=== PATIENT | female | born 1985 | race Asian ===

== ENCOUNTER → 2018-03-05 | Outpatient (CLI) | payer OTHER | END | disposition home or self-care (01) | LOC: C.LABSPEC 14:13 | PROVIDERS: ATTEND Obstetrics & Gynecology | DX: N89.8 Other specified noninflammatory disorders of vagina (principal) ==

== ENCOUNTER 2020-06-15 10:21 | Inpatient (IN) ==
--- NOTE | 2020-06-15 10:54 | Anesthesiology Consultation ---
Date of Service June 15, 2020 Assessment & Plan Chart Review Chart Review: Acceptable Risk for Surgery Consults Requested none History Surgery Operation Date: 06/15/20 11:30 Proposed Procedures p Exam Under Anesthesia - Yamilet Munroe MD, FACOG Allergies Allergy/AdvReac Type Severity Reaction Status Date / Time No Known Drug Allergies Allergy NKA Verified 06/14/20 13:06 Medications Home Medications Medication Instructions Recorded Confirmed Last Taken prenat.vits,remy,kka-olsh-noysp 1 tab PO DAILY 10/28/19 06/14/20 06/14/20 acetone (urine) test #50 03/28/20 06/14/20 Unknown blood sugar diagnostic #150 03/28/20 06/14/20 Unknown blood-glucose meter #1 03/28/20 06/14/20 Unknown lancets #102 03/28/20 06/14/20 Unknown pen needle, diabetic 32 gauge x #100 05/26/20 06/14/20 Unknown 32" ferrous sulfate [iron] 325 mg PO DAILY 06/08/20 06/14/20 06/14/20 insulin NPH isoph U-100 human 50 unit SQ HS 06/08/20 06/14/20 06/14/20 [Novolin N Flexpen] insulin aspart U-100 [Novolog 25 unit SQ TID MDD up to 50 units 06/15/20 06/14/20 20:30 Flexpen U-100 Insulin] in a day Past Medical History Medical History [place]ervical [place] suture [place] [facility] [place]ervical [place] Diet controlled gestational diabetes mellitus (GDM), antepartum Encounter for anatomic survey History of PCOS Insulin resistance Varicella vaccine Past Family History Family History Father Diabetes Grandmother Diabetes Grandfather Diabetes Aunt Diabetes Past Surgical History Surgical History S/P wisdom tooth extraction Social History Smoking Status: Never smoker Hx Alcohol Use: No Hx Substance Use: No substance use type: does not use
[2020-06-15 11:03] LABS: Basophils # (auto) 0.01 K/uL (0-0.2); Basophils % (auto) 0.1 %; Eosinophils # (auto) 0.06 K/uL (0-0.5); Eosinophils % (auto) 0.6 %; Hematocrit (blood only) 34.7 % (37-47); Hemoglobin 11.7 g/dL (12.0-16.0); Immature Granulocytes # (auto) 0.06 K/uL (0.00-0.02); Immature Granulocytes % (auto) 0.6 %; Lymphocytes # (auto) 2.22 K/uL (1.2-3.4); Lymphocytes % (auto) 23.1 %; Mean Corpuscular Hemoglobin 29.4 pg (25-34); Mean Corpuscular Hgb Conc 33.7 g/dL (32-36); Mean Corpuscular Volume 87.2 fL (80-100); Mean Platelet Volume 12.2 fL (7.4-10.4); Monocytes # (auto) 0.63 K/uL (0.11-0.59); Monocytes % (auto) 6.6 %; Neutrophils # (auto) 6.62 K/uL (1.4-6.5); Platelet Count 173 K/uL (130-400); RDW Coefficient of Variation 15.1 % (11.5-14.5); RDW Standard Deviation 47.9 fL (36.4-46.3); Red Blood Count 3.98 M/uL (4.2-5.4)
--- NOTE | 2020-06-15 11:03 | History & Physical Report ---
Date of Service June 15, 2020 Assessment & Plan (1) Cervical cerclage suture present, antepartum: Admission and Anticipated Discharge Date Admission Date: June 15, 2020 Plan to go to operating room and remove cerclage under spinal. risks of procedure reviewed and consent reviewed and signed. fetus category one. History of Present Illness Chief Complaint: presents for cerclage removal Primary Care Provider: NO PCP Patient is a at 37 6/7 weeks who presents to labor and delivery for cerclage removal. Patient had shortened , funneled cervix at 20 week anatomy scan. She subsequently [place] [facility] [place] Patient presented last week at 36 weeks for removal with this physician. I removed a cerclage with some difficulty because of patient discomfort that day. Exam after removal, I did not appreciate any remaining suture and was 1cm. Patient presented to the office yesterday for routine pn visit. I perfomed an exam and, unfortunately, felt a stitch across the external os. I attempted to remove in the office and was unsuccessful secondary to poor visualization and patient discomfort. Therefore, she is here for another attempt at removal under spinal and in the OR so can successfully remove. also complicated by insulin requiring diabetes. Allergies Allergy/AdvReac Type Severity Reaction Status Date / Time No Known Drug Allergies Allergy NKA Verified 06/14/20 13:06 Home Medications Home Medications Medication Instructions Recorded Confirmed Type prenat.vits,remy,[id number] 1 tab PO DAILY 10/28/19 06/15/20 History acetone (urine) test #50 ea 03/28/20 06/14/20 Rx blood sugar diagnostic #150 03/28/20 06/14/20 Rx blood-glucose meter #1 03/28/20 06/14/20 Rx lancets #102 03/28/20 06/14/20 Rx pen needle, diabetic 32 gauge x #100 ea 05/26/20 06/14/20 Rx 5/32" ferrous sulfate [iron] 325 mg PO DAILY 06/08/20 06/15/20 History insulin NPH isoph U-100 human 50 unit SQ HS 06/08/20 06/15/20 History [Novolin N Flexpen] insulin aspart U-100 [Novolog 25 unit SQ TID MDD up to 50 units 06/15/20 06/15/20 History Flexpen U-100 Insulin] in a day Patient History Medical History Cervical cerclage suture present [place] 20 weeks [place] [facility] [place] Cervical shortening Encounter for anatomic survey History of PCOS Insulin controlled gestational diabetes mellitus (GDM) during See medications for Insulin taken during the . Insulin resistance Varicella vaccine Surgical History S/P wisdom tooth extraction Family History Father Diabetes Grandmother Diabetes Grandfather Diabetes Aunt Diabetes Social History Smoking Status: Never smoker Hx Alcohol Use: No Hx Substance Use: No Preferred Language: Indonesian Communication Ability: Effective Beliefs That Will Affect Care: Cultural Cultural Beliefs: prefers no male providers; Anesthesia ok marital status: marital status details: Nacho Maulik Joy (33) [phone] Current Living Situation: Spouse Current Living Situation Comment: lives with spouse no pets current occupational status: unemployed Feels Safe at Home: Yes Review of Systems All systems reviewed & are unremarkable except as noted in HPI & below Physical Exam Constitutional: WD/WN, vitals as above Gastrointestinal (Abdomen): soft, gravid, nt Psychiatric: A+Ox3, euthymic affect Genitourinary: cx--1+/75/-2, stitch still palpable toco--giancarlo efm--140s with mod variability, accels to 160s, no decels Code Status & VTE Plan VTE Prophylaxis Plan VTE Prophylaxis will be ordered: No Coding Level of Care Code 31639 OBS Care - Level 1 Diagnoses Cervical cerclage suture present, antepartum O34.30
[2020-06-15] MEDS: LACTATED RINGER'S 1,000 ML IV PRN ×3 (11:10→21:06)
[2020-06-15] MEDS ORDERED: LACTATED RINGER'S 1,000 ML IV ONE (11:11)
[2020-06-15] MEDS ORDERED: fentaNYL citrate 100 MCG/2 ML VIAL IV PRN (11:15)
[2020-06-15] MEDS ORDERED: ONDANSETRON INJ 2 MG/ML 2 ML VIAL IV PRN (11:15)
[2020-06-15] MEDS ORDERED: PROMETHAZINE HCL 12.5 MG in SODIUM CHLORIDE 0.9% 50 ML IV PRN (11:15)
[2020-06-15] MEDS ORDERED: ePHEDrine sulfate 50 MG/ML AMP IV PRN ×2 (11:15→23:28)
[2020-06-15] MEDS ORDERED: ATROPINE SULFATE 0.1 MG/ML 10ML SYR IV PRN (11:15)
[2020-06-15] MEDS ORDERED: CITRIC ACID/SODIUM CITRATE 15 ML UDC ONE (11:29)
[2020-06-15] MEDS ORDERED: CITRIC ACID/SODIUM CITRATE 15 ML UDC PO ONE (11:29)
--- NOTE | 2020-06-15 12:30 | Operative Report ---
PG Post Operative Report Pre & Post Diagnosis Operation Date: 06/15/20 11:30 Pre-Op Diagnosis: Cerclage in place postop diagnosis: cerclage removed srom I identified the patient and participated in the time-out.: Yes Procedure Removal of cerclage Operation Date: 06/15/20 11:30 <No data on this case meets the specified criteria> Surgeon Yamilet Munroe MD, FACOG Coke Worker none Estimated Blood Loss 25 Findings Consistent with Post-Op Diagnosis srom noted prior to any operative maneuvers performed cx--/-2 after procedure, vertex, no membranes palpable, grossly ruptured STitch across cervix cut and remaining suture cut as well. Fluids LR Specimens none Drains none Anesthesia Type Spinal Complications none Disposition Accompanied Patient To Recovery: Yes Disposition: L&D Indications persistent cerclage at term Description of Procedure Patient was taken to the operating room and identified verbally and by bracelet. Patient was seated on the operating table and spinal anesthetic was placed by Dr. Chu. She was then placed in the dorsal lithotomy position. An under the butt drape was placed. I noted before even placing anything in the vagina there was clear fluid coming out. A weighted speculum was placed and the vagina filled with clear fluid, consistent with srom happening prior to the start of my part of the procedure. A right angle retractor was placed in the upper vagina. The cervix anterior and posterior lip were grasped with a ring forcep. There was no bleeding noted prior to the procedure but the cervix appeared friable. I was then able to use a long scissors to cut the suture that was across the cervical os by palpation. I then removed all instruments from the vagina and a gush of fluid followed. I examined the cervix. Could not appreciate any membranes. cervix was 3 cm but I still felt there was a tightness to the cervix and that maybe another stitch was present, or not all of the stitch was loose. I was able to palpate the internal cervix and slid the scissors up my finger and cut. All instruments were removed from the vagina and on reexamination of the cervix, I did not feel that tightness any longer. I never actually physically visualized any suture. I examined the external , vaginal part of the cervix and I did not see any knot or suture. At the 2 o'clock area there was a small amount of granulation tissue where the knot of the part of the cerclage I removed previously had been located. There was no stitch visible. The procedure was then terminated. Continued to note clear fluid coming from the vagina. The patient tolerated the procedure well and was taken to labor and delivery in stable condition. She will now be admitted for labor. I attest to the content of the Intraoperative Record and any orders documented therein. Any exceptions are noted below.
--- NOTE | 2020-06-15 12:33 | Labor Progress Brief Note ---
Date of Service June 15, 2020 Subjective Patient is back in labor and delivery and comfortable. Assessment & Plan (1) PROM (premature rupture of membranes): Admission and Anticipated Discharge Date Admission Date: June 15, 2020 Patient ruptured prio to me actually doing anything with the cerclage. She will now be admitted for labor. Will expectantly manage. PItocin as indicated. Pain management per patient. fetus category one. Will monitor bs hourly. Goal is to maintain between 80-120. Will add insulin or D5 if needed. Last growth ultrasound was AC 73% and EFW 72%. Physical Exam Constitutional: WD/WN, vitals as above Psychiatric: A+Ox3, euthymic affect Genitourinary: efw--130s wtih mod variability, accels to 160s, no decels. ctx q6min. Results & Data ([facility]) Vital Signs (Past 12 Hours) Vital Signs Temp Pulse Resp BP Pulse Ox 06/15/20 12:26 93 H 100 06/15/20 11:00 20 06/15/20 10:59 37.1 C 88 20 121/79 Coding Level of Care Code None Diagnoses PROM (premature rupture of membranes) O42.90
[2020-06-15] MEDS ORDERED: OXYTOCIN 30 UNITS/500 ML BAG IV PRN ×2 (12:35→18:20)
[2020-06-15] MEDS ORDERED: LACTATED RINGER'S 1,000 ML IV PRN (12:35)
--- NOTE | 2020-06-15 15:25 | Labor Progress Brief Note ---
Date of Service June 15, 2020 Subjective noting contractions, notes they are every five min Assessment & Plan (1) PROM (premature rupture of membranes): Admission and Anticipated Discharge Date Admission Date: June 15, 2020 Continue expectant management. fetus category one. Plan to check at around 6 hours after srom. Physical Exam Constitutional: WD/WN, vitals as above Psychiatric: A+Ox3, euthymic affect Genitourinary: toco--q3-5 efm--130s with mod variability, accels to 160s, no decels Results & Data ([facility]) Vital Signs (Past 12 Hours) Vital Signs Temp Pulse Resp BP Pulse Ox 06/15/20 15:05 88 122/72 06/15/20 14:50 86 115/73 06/15/20 14:41 87 118/72 06/15/20 14:30 37.0 C 96 H 18 119/84 06/15/20 14:20 98 H 125/79 06/15/20 14:10 92 H 127/73 06/15/20 14:01 73 20 132/73 06/15/20 13:50 86 20 124/79 06/15/20 13:41 93 H 121/79 06/15/20 13:30 88 20 123/79 06/15/20 13:26 84 100 06/15/20 13:21 89 20 135/83 100 06/15/20 13:16 86 06/15/20 13:12 86 20 127/82 06/15/20 13:11 87 100 06/15/20 13:06 85 100 06/15/20 13:01 82 20 120/79 100 06/15/20 12:56 81 100 06/15/20 12:51 80 06/15/20 12:50 77 20 109/61 06/15/20 12:46 83 100 06/15/20 12:43 85 20 124/78 06/15/20 12:41 79 20 120/76 100 06/15/20 12:36 91 H 18 100 06/15/20 12:31 91 H 100 06/15/20 12:30 37.1 C 88 20 121/84 06/15/20 12:26 93 H 100 06/15/20 11:00 20 06/15/20 10:59 37.1 C 88 20 121/79 Coding Level of Care Code None Diagnoses PROM (premature rupture of membranes) O42.90
--- NOTE | 2020-06-15 15:29 | Anesthesiology Progress Note ---
Date of Service June 15, 2020 Anesthesia Post Procedure Vital Signs Vital Signs: Temp Pulse Resp BP Pulse Ox 06/15/20 15:05 88 122/72 06/15/20 14:50 86 115/73 06/15/20 14:41 87 118/72 06/15/20 14:30 37.0 C 96 H 18 119/84 06/15/20 14:20 98 H 125/79 06/15/20 14:10 92 H 127/73 06/15/20 14:01 73 20 132/73 06/15/20 13:50 86 20 124/79 06/15/20 13:41 93 H 121/79 06/15/20 13:30 88 20 123/79 06/15/20 13:26 84 100 06/15/20 13:21 89 20 135/83 100 06/15/20 13:16 86 100 06/15/20 13:12 86 20 127/82 06/15/20 13:11 87 100 06/15/20 13:06 85 100 06/15/20 13:01 82 20 120/79 100 06/15/20 12:56 81 100 06/15/20 12:51 80 100 06/15/20 12:50 77 20 109/61 06/15/20 12:46 83 100 06/15/20 12:43 85 20 124/78 06/15/20 12:41 79 20 120/76 100 06/15/20 12:36 91 H 18 100 06/15/20 12:31 91 H 100 06/15/20 12:30 37.1 C 88 20 121/84 06/15/20 12:26 93 H 100 06/15/20 11:00 20 06/15/20 10:59 37.1 C 88 20 121/79 Pain Intensity Bilateral Abdomen: Pain Intensity: 3 Transfer of Care Handoff Completed per policy Notes Mental Status: alert / awake / arousable and participated in evaluation Patient Amnestic to Procedure: Yes Nausea / Vomiting: adequately controlled Pain: adequately controlled Airway Patency, RR, SpO2: stable & adequate BP & HR: stable & adequate Hydration State: stable & adequate Neuraxial Anesthesia: was administered and sensory block is resolving Anesthetic Complications: no major complications apparent
--- NOTE | 2020-06-15 18:23 | Labor Progress Brief Note ---
Date of Service June 15, 2020 Subjective Feels like contractions have spaced. Assessment & Plan (1) PROM (premature rupture of membranes): start pitocin as no change since 6 hrs from rom, agreeable (2) Insulin controlled gestational diabetes mellitus (GDM) during : sugars all less than 120, recently in 70s. can space to q2 hrs. Admission and Anticipated Discharge Date Admission Date: June 15, 2020 Physical Exam Constitutional: WD/WN, vitals as above Psychiatric: A+Ox3, euthymic affect Genitourinary: cx--difficult exam secondary to patient discomfort, probably no change toco--q5-6min efm--130s with mod variabitility , accels to 150s, no decels Results & Data ([facility]) Vital Signs (Past 12 Hours) Vital Signs Temp Pulse Resp BP Pulse Ox 06/15/20 18:13 36.7 C 94 H 20 128/78 06/15/20 16:37 37.0 C 82 16 121/65 06/15/20 15:05 88 122/72 06/15/20 14:50 86 115/73 06/15/20 14:41 87 118/72 06/15/20 14:30 37.0 C 96 H 18 119/84 06/15/20 14:20 98 H 125/79 06/15/20 14:10 92 H 127/73 06/15/20 14:01 73 20 132/73 06/15/20 13:50 86 20 124/79 06/15/20 13:41 93 H 121/79 06/15/20 13:30 88 20 123/79 06/15/20 13:26 84 100 06/15/20 13:21 89 20 135/83 100 06/15/20 13:16 86 06/15/20 13:12 86 20 127/82 06/15/20 13:11 87 100 06/15/20 13:06 85 100 06/15/20 13:01 82 20 120/79 100 06/15/20 12:56 81 100 06/15/20 12:51 80 100 06/15/20 12:50 77 20 109/61 06/15/20 12:46 83 100 06/15/20 12:43 85 20 124/78 06/15/20 12:41 79 20 120/76 100 06/15/20 12:36 91 H 18 100 06/15/20 12:31 91 H 100 06/15/20 12:30 37.1 C 88 20 121/84 06/15/20 12:26 93 H 100 06/15/20 11:00 20 06/15/20 10:59 37.1 C 88 20 121/79 Coding Level of Care Code None Diagnoses PROM (premature rupture of membranes) O42.90 Insulin controlled gestational diabetes mellitus (GDM) during O24.414
[2020-06-15] MEDS ORDERED: Nursing to Pharmacy Communication SCH (18:30)
[2020-06-15] MEDS ORDERED: DEXTROSE 5% 1,000 ML IV SCH (20:45)
[2020-06-15] MEDS ORDERED: ePHEDrine sulfate 50 MG/ML AMP ONE (22:40)
[2020-06-15] MEDS ORDERED: BUPIVACAINE 0.25% 30 ML VIAL ONE (22:40)
[2020-06-15] MEDS ORDERED: fentaNYL 2MCG/ML ROPIV 1.25MG/ML 100 ML BAG EPI ONE (22:41)
[2020-06-15] MEDS ORDERED: fentaNYL citrate 100 MCG/2 ML VIAL ONE (22:41)
--- NOTE | 2020-06-15 23:25 | Anesthesiology Consultation ---
Date of Service June 15, 2020 Assessment & Plan Chart Review Chart Review: Acceptable Risk for Labor Epidural Consults Requested none History Surgery Operation Date: 06/15/20 11:30 Proposed Procedures p Exam Under Anesthesia - Yamilet Munroe MD, FACOG Height/Weight Height: 5 ft 8 in Weight: 107.501 kg Allergies Allergy/AdvReac Type Severity Reaction Status Date / Time No Known Drug Allergies Allergy NKA Verified 06/14/20 13:06 Medications Home Medications Medication Instructions Recorded Confirmed Last Taken prenat.vits,remy,kpy-easj-olzwz 1 tab PO DAILY 10/28/19 06/15/20 06/14/20 acetone (urine) test #50 03/28/20 06/14/20 Unknown blood sugar diagnostic #150 03/28/20 06/14/20 Unknown blood-glucose meter #1 03/28/20 06/14/20 Unknown lancets #102 03/28/20 06/14/20 Unknown pen needle, diabetic 32 gauge x #100 05/26/20 06/14/20 Unknown " ferrous sulfate [iron] 325 mg PO DAILY 06/08/20 06/15/20 06/14/20 insulin NPH isoph U-100 human 50 unit SQ HS 06/08/20 06/15/20 06/14/20 [Novolin N Flexpen] insulin aspart U-100 [Novolog 25 unit SQ TID MDD up to 50 units 06/15/20 06/15/20 06/14/20 20:30 Flexpen U-100 Insulin] in a day Active Medications Generic Name Dose Route Start Last Admin Trade Name Jamshidq PRN Reason Stop Dose Admin Lactated Ringer's 1,000 mls @ 125 mls/hr 06/15/20 10:38 06/15/20 21:06 Lr IV 07/15/20 10:37 125 mls/hr .Q8H PRN Administration L&D Protocol Protocol Oxytocin 30 units in 500 mls @ 14 mls/hr 06/15/20 18:20 06/15/20 22:10 Pitocin IV 06/17/20 18:19 0.84 units/hr .Q24H PRN 14 mls/hr Labor Induction/Augmentation Titration Protocol 0.84 UNITS/HR NPO Date Last Intake of Fluids: 06/15/20 Time Last Intake of Fluids: 09:45 Date Last Intake of Solids: 06/14/20 Time Last Intake of Solids: 20:30 Past Medical History Medical History Cervical cerclage suture present placed at 20 weeks at [facility] [place] Cervical shortening Encounter for anatomic survey History of PCOS Insulin controlled gestational diabetes mellitus (GDM) during See medications for Insulin taken during the . Insulin resistance Varicella vaccine Past Family History Family History Father Diabetes Grandmother Diabetes Grandfather Diabetes Aunt Diabetes Past Surgical History Surgical History S/P wisdom tooth extraction Social History Smoking Status: Never smoker Hx Alcohol Use: No Hx Substance Use: No substance use type: does not use Physical Exam Vital Signs Last Vital Signs Temp 36.8 C 06/15/20 21:32 Pulse 100 H 06/15/20 23:23 Resp 18 06/15/20 22:00 BP 123/60 06/15/20 23:23 Pulse Ox 99 06/15/20 23:19 Testing Laboratory Results 06/15/20 10:51 06/15/20 06/15/20 06/15/20 21:29 20:29 18:28 POC Glucose 76 69 L* 78 06/15/20 06/15/20 06/15/20 17:38 16:34 15:41 POC Glucose 71 70 78 06/15/20 06/15/20 06/15/20 14:27 13:28 12:27 POC Glucose 89 91 106 H
[2020-06-15] MEDS ORDERED: DiphenhydrAMINE HCL 50 MG/ML VIAL IV PRN (23:28)
[2020-06-15] MEDS ORDERED: NALOXONE HCL 1 MG in SODIUM CHLORIDE 0.9% 1000ML 1,000 ML IV PRN (23:28)
[2020-06-15] MEDS ORDERED: NALOXONE HCL 0.4 MG/1 ML VIAL/CARP IV PRN (23:28)
--- NOTE | 2020-06-16 00:11 | Labor Progress Brief Note ---
Date of Service June 16, 2020 Subjective comfortable after epidural Assessment & Plan (1) PROM (premature rupture of membranes): Admission and Anticipated Discharge Date Admission Date: June 15, 2020 continue pit, max at 30. fetus category one Physical Exam Constitutional: WD/WN, vitals as above Psychiatric: A+Ox3, euthymic affect Genitourinary: cx--4/75/-2 toco--q3-5min, pit at 16 efm--135 with mod variability, accels to 150s, no decels Results & Data ([facility]) Vital Signs (Past 12 Hours) Vital Signs Temp Pulse Resp BP Pulse Ox 06/16/20 00:05 86 110/61 06/16/20 00:04 91 H 98 06/15/20 23:59 98 H 99 06/15/20 23:54 97 H 99 06/15/20 23:49 91 H 116/61 98 06/15/20 23:44 92 H 98 06/15/20 23:39 108 H 98 06/15/20 23:35 18 06/15/20 23:34 104 H 99 06/15/20 23:33 96 H 130/60 06/15/20 23:32 36.6 C 06/15/20 23:30 18 06/15/20 23:29 104 H 98 06/15/20 23:27 100 H 127/59 L 06/15/20 23:25 98 H 18 119/63 06/15/20 23:24 97 H 98 06/15/20 23:23 100 H 123/60 06/15/20 23:21 106 H 119/57 L 06/15/20 23:20 18 06/15/20 23:19 99 H 121/62 99 06/15/20 23:17 96 H 123/68 06/15/20 23:15 101 H 18 136/66 06/15/20 23:14 96 H 99 06/15/20 23:13 90 132/61 06/15/20 23:11 89 141/73 H 06/15/20 23:09 99 H 127/81 100 06/15/20 23:07 96 H 142/85 H 06/15/20 23:04 100 H 100 06/15/20 23:01 93 H 135/78 06/15/20 23:00 18 09/02/20 22:59 90 159/96 H 09/02/20 22:30 18 06/15/20 22:00 18 06/15/20 21:32 36.8 C 86 134/81 06/15/20 21:30 18 06/15/20 21:00 18 06/15/20 20:32 90 131/63 06/15/20 20:30 18 06/15/20 19:21 37.0 C 84 108/59 L 06/15/20 18:13 36.7 C 94 H 20 128/78 06/15/20 16:37 37.0 C 82 16 121/65 06/15/20 15:05 88 122/72 06/15/20 14:50 86 115/73 06/15/20 14:41 87 118/72 06/15/20 14:30 37.0 C 96 H 18 119/84 06/15/20 14:20 98 H 125/79 06/15/20 14:10 92 H 127/73 06/15/20 14:01 73 20 132/73 06/15/20 13:50 86 20 124/79 06/15/20 13:41 93 H 121/79 06/15/20 13:30 88 20 123/79 06/15/20 13:26 84 100 06/15/20 13:21 89 20 135/83 100 06/15/20 13:16 86 100 06/15/20 13:12 86 20 127/82 06/15/20 13:11 87 100 06/15/20 13:06 85 100 06/15/20 13:01 82 20 120/79 100 06/15/20 12:56 81 100 06/15/20 12:51 80 100 06/15/20 12:50 77 20 109/61 06/15/20 12:46 83 100 06/15/20 12:43 85 20 124/78 06/15/20 12:41 79 20 120/76 100 06/15/20 12:36 91 H 18 100 06/15/20 12:31 91 H 100 06/15/20 12:30 37.1 C 88 20 121/84 06/15/20 12:26 93 H 100 Coding Level of Care Code None Diagnoses PROM (premature rupture of membranes) O42.90
[2020-06-16] MEDS: LACTATED RINGER'S 1,000 ML IV PRN ×2 (01:39→12:29)
--- NOTE | 2020-06-16 03:51 | Labor Progress Brief Note ---
Date of Service June 16, 2020 Subjective comfortable Assessment & Plan (1) PROM (premature rupture of membranes): Admission and Anticipated Discharge Date Admission Date: June 15, 2020 continue pit with goal of >200mvus. fetus category one. Physical Exam Constitutional: WD/WN, vitals as above Psychiatric: A+Ox3, euthymic affect Genitourinary: cx--4/80/-2 iupc placed toco--q2-4min with some coupling/tripling, pit at 24 efm--130s with mod variability, accels to 160s, no decels Results & Data ([facility]) Vital Signs (Past 12 Hours) Vital Signs Temp Pulse Resp BP Pulse Ox 06/16/20 03:45 95 H 98 06/16/20 03:40 88 97 06/16/20 03:35 99 H 98 06/16/20 03:34 79 96/55 L 06/16/20 03:30 81 18 97 06/16/20 03:25 82 97 06/16/20 03:22 37.2 C 06/16/20 03:20 85 99/58 L 98 06/16/20 03:15 91 H 97 06/16/20 03:10 80 98 06/16/20 03:05 86 100/55 L 99 06/16/20 03:00 82 18 98 06/16/20 02:55 88 99 06/16/20 02:50 76 98 06/16/20 02:49 78 106/58 L 06/16/20 02:45 78 98 06/16/20 02:40 89 97 06/16/20 02:35 83 99 06/16/20 02:34 75 110/60 06/16/20 02:30 85 18 98 06/16/20 02:25 86 97 06/16/20 02:20 88 100/60 99 06/16/20 02:15 79 97 06/16/20 02:10 88 97 06/16/20 02:05 88 96 06/16/20 02:04 80 102/56 L 06/16/20 02:00 80 18 97 06/16/20 01:55 87 97 06/16/20 01:50 84 98 06/16/20 01:48 89 100/61 06/16/20 01:45 86 98 06/16/20 01:40 82 97 06/16/20 01:35 81 99 06/16/20 01:34 37.1 C 81 97/56 L 06/16/20 01:30 81 18 97 06/16/20 01:25 89 98 06/16/20 01:20 87 98 06/16/20 01:19 90 98/56 L 06/16/20 01:15 92 H 97 06/16/20 01:10 90 98 06/16/20 01:05 90 97 06/16/20 01:03 82 101/55 L 06/16/20 01:00 94 H 18 97 06/16/20 00:55 83 97 06/16/20 00:50 81 97 06/16/20 00:49 77 98/55 L 06/16/20 00:45 86 98 06/16/20 00:40 89 97 06/16/20 00:35 86 97 06/16/20 00:34 84 105/59 L 06/16/20 00:30 86 18 97 06/16/20 00:25 84 97 06/16/20 00:20 84 97 06/16/20 00:19 78 99/58 L 06/16/20 00:15 88 98 06/16/20 00:10 91 H 98 06/16/20 00:05 86 110/61 06/16/20 00:04 91 H 98 06/16/20 00:00 18 06/15/20 23:59 98 H 99 06/15/20 23:54 97 H 99 06/15/20 23:49 91 H 116/61 98 06/15/20 23:44 92 H 98 06/15/20 23:39 108 H 98 06/15/20 23:35 18 06/15/20 23:34 104 H 99 06/15/20 23:33 96 H 130/60 06/15/20 23:32 36.6 C 06/15/20 23:30 18 06/15/20 23:29 104 H 98 06/15/20 23:27 100 H 127/59 L 06/15/20 23:25 98 H 18 119/63 06/15/20 23:24 97 H 98 06/15/20 23:23 100 H 123/60 06/15/20 23:21 106 H 119/57 L 06/15/20 23:20 18 06/15/20 23:19 99 H 121/62 99 06/15/20 23:17 96 H 123/68 06/15/20 23:15 101 H 18 136/66 06/15/20 23:14 96 H 99 06/15/20 23:13 90 132/61 06/15/20 23:11 89 141/73 H 06/15/20 23:09 99 H 127/81 100 06/15/20 23:07 96 H 142/85 H 06/15/20 23:04 100 H 100 06/15/20 23:01 93 H 135/78 06/15/20 23:00 18 06/15/20 22:59 90 159/96 H 06/15/20 22:30 18 06/15/20 22:00 18 06/15/20 21:32 36.8 C 86 134/81 06/15/20 21:30 18 06/15/20 21:00 18 06/15/20 20:32 90 131/63 06/15/20 20:30 18 06/15/20 19:21 37.0 C 84 108/59 L 06/15/20 18:13 36.7 C 94 H 20 128/78 06/15/20 16:37 37.0 C 82 16 121/65 Coding Level of Care Code None Diagnoses PROM (premature rupture of membranes) O42.90
[2020-06-16] MEDS: fentaNYL 2MCG/ML ROPIV 1.25MG/ML 100 ML BAG EPI PRN ×3 (04:57→12:27)
[2020-06-16] MEDS ORDERED: Nursing to Pharmacy Communication SCH (05:15)
[2020-06-16] MEDS ORDERED: CITRIC ACID/SODIUM CITRATE 15 ML UDC PO SCH (06:00)
--- NOTE | 2020-06-16 06:46 | Labor Progress Brief Note ---
Date of Service June 16, 2020 Subjective comfortable with epidural Assessment & Plan (1) PROM (premature rupture of membranes): Admission and Anticipated Discharge Date Admission Date: June 15, 2020 ctx have been adequate since about 4am, 6 hours with adequate contractions would be 10 am. I started laying the ground work for a possible c/s delivery. I have basically used all of the tools in my bag to get her to contract and she is not changing. Patient asked why we just did not do this yesterday and explained how we have no idea that this baby would not fit through the pelvis noman given 37 6/7 weeks. Explained what I have control over and what I do not. Explained no way we can ever determine a baby will or will not fit through a pelvis until we try. Explained that the power being created by these contractions should be making cervical change. Discussed would discuss in detail with Dr. Mari the labor course. fetus category one. Physical Exam Constitutional: WD/WN, vitals as above Psychiatric: A+Ox3, euthymic affect Genitourinary: cx--unchanged toco--q2-3min, pit at 30, mvus>200 since shortly after iupc placed toco--130s with mod variability, accels to 150s, no decels Results & Data ([facility]) Vital Signs (Past 12 Hours) Vital Signs Temp Pulse Resp BP Pulse Ox 06/16/20 06:36 100 H 140/85 06/16/20 06:35 96 H 99 06/16/20 06:30 90 99 06/16/20 06:25 81 97 06/16/20 06:20 92 H 96 06/16/20 06:19 89 103/56 L 06/16/20 06:15 92 H 96 06/16/20 06:10 89 96 06/16/20 06:05 93 H 98 06/16/20 06:04 88 109/56 L 06/16/20 06:00 94 H 18 97 06/16/20 05:55 92 H 97 06/16/20 05:54 94 H 94 06/16/20 05:50 91 H 108/57 L 95 06/16/20 05:45 86 96 06/16/20 05:40 89 97 06/16/20 05:35 90 96 06/16/20 05:34 86 107/59 L 06/16/20 05:30 95 H 18 97 06/16/20 05:28 37.2 C 06/16/20 05:25 92 H 97 06/16/20 05:24 90 109/56 L 06/16/20 05:20 91 H 98 06/16/20 05:19 83 90 06/16/20 05:15 86 96 06/16/20 05:10 85 97 06/16/20 05:05 85 97 06/16/20 05:04 83 104/57 L 06/16/20 05:00 91 H 18 99 06/16/20 04:55 87 98 06/16/20 04:50 86 107/56 L 98 06/16/20 04:49 87 90 06/16/20 04:45 90 96 06/16/20 04:40 92 H 97 06/16/20 04:35 82 110/64 97 06/16/20 04:30 81 98 06/16/20 04:25 85 97 06/16/20 04:21 85 132/92 06/16/20 04:20 93 H 99 06/16/20 04:15 94 H 98 06/16/20 04:10 87 97 06/16/20 04:06 86 131/83 06/16/20 04:05 97 H 98 06/16/20 04:00 91 H 18 98 06/16/20 03:58 91 H 117/71 06/16/20 03:55 89 98 06/16/20 03:50 90 98 06/16/20 03:45 95 H 98 06/16/20 03:40 88 97 06/16/20 03:35 99 H 98 06/16/20 03:34 79 96/55 L 06/16/20 03:30 81 18 97 06/16/20 03:25 82 97 06/16/20 03:22 37.2 C 06/16/20 03:20 85 99/58 L 98 06/16/20 03:15 91 H 97 06/16/20 03:10 80 98 06/16/20 03:05 86 100/55 L 99 06/16/20 03:00 82 18 98 06/16/20 02:55 88 99 06/16/20 02:50 76 98 06/16/20 02:49 78 106/58 L 06/16/20 02:45 78 98 06/16/20 02:40 89 97 06/16/20 02:35 83 99 06/16/20 02:34 75 110/60 06/16/20 02:30 85 18 98 06/16/20 02:25 86 97 06/16/20 02:20 88 100/60 99 06/16/20 02:15 79 97 06/16/20 02:10 88 97 06/16/20 02:05 88 96 06/16/20 02:04 80 102/56 L 06/16/20 02:00 80 18 97 06/16/20 01:55 87 97 06/16/20 01:50 84 98 06/16/20 01:48 89 100/61 06/16/20 01:45 86 98 06/16/20 01:40 82 97 06/16/20 01:35 81 99 06/16/20 01:34 37.1 C 81 97/56 L 06/16/20 01:30 81 18 97 06/16/20 01:25 89 98 06/16/20 01:20 87 98 06/16/20 01:19 90 98/56 L 06/16/20 01:15 92 H 97 06/16/20 01:10 90 98 06/16/20 01:05 90 97 06/16/20 01:03 82 101/55 L 06/16/20 01:00 94 H 18 97 06/16/20 00:55 83 97 06/16/20 00:50 81 97 06/16/20 00:49 77 98/55 L 06/16/20 00:45 86 98 06/16/20 00:40 89 97 06/16/20 00:35 86 97 06/16/20 00:34 84 105/59 L 06/16/20 00:30 86 18 97 06/16/20 00:25 84 97 06/16/20 00:20 84 97 06/16/20 00:19 78 99/58 L 06/16/20 00:15 88 98 06/16/20 00:10 91 H 98 06/16/20 00:05 86 110/61 06/16/20 00:04 91 H 98 06/16/20 00:00 18 06/15/20 23:59 98 H 99 06/15/20 23:54 97 H 99 06/15/20 23:49 91 H 116/61 98 06/15/20 23:44 92 H 98 06/15/20 23:39 108 H 98 06/15/20 23:35 18 06/15/20 23:34 104 H 99 06/15/20 23:33 96 H 130/60 06/15/20 23:32 36.6 C 06/15/20 23:30 18 06/15/20 23:29 104 H 98 06/15/20 23:27 100 H 127/59 L 06/15/20 23:25 98 H 18 119/63 06/15/20 23:24 97 H 98 06/15/20 23:23 100 H 123/60 06/15/20 23:21 106 H 119/57 L 06/15/20 23:20 18 06/15/20 23:19 99 H 121/62 99 06/15/20 23:17 96 H 123/68 06/15/20 23:15 101 H 18 136/66 06/15/20 23:14 96 H 99 06/15/20 23:13 90 132/61 06/15/20 23:11 89 141/73 H 06/15/20 23:09 99 H 127/81 100 06/15/20 23:07 96 H 142/85 H 06/15/20 23:04 100 H 100 06/15/20 23:01 93 H 135/78 06/15/20 23:00 18 06/15/20 22:59 90 159/96 H 06/15/20 22:30 18 06/15/20 22:00 18 06/15/20 21:32 36.8 C 86 134/81 06/15/20 21:30 18 06/15/20 21:00 18 06/15/20 20:32 90 131/63 06/15/20 20:30 18 06/15/20 19:21 37.0 C 84 108/59 L Coding Level of Care Code None Diagnoses PROM (premature rupture of membranes) O42.90
--- NOTE | 2020-06-16 11:30 | Obstetrical Progress Note ---
Date of Service June 16, 2020 Assessment & Plan Admission and Anticipated Discharge Date Admission Date: June 15, 2020 Subjective contractions noticeably better FHT's category 1 feeling more pressure cx exam- 5cm/90/-2 will continue to labor now and recheck in 1 hour plan discussed with & patient - would like to continue to labor for now- recheck in 1 hour Results & Data ([facility]) Vital Signs (Past 12 Hours) Vital Signs Temp Pulse Resp BP Pulse Ox 06/16/20 11:25 99 H 99 06/16/20 11:20 97 H 98 06/16/20 11:19 96 H 134/75 06/16/20 11:15 93 H 98 06/16/20 11:10 98 H 98 06/16/20 11:05 95 H 96 06/16/20 11:04 93 H 131/71 06/16/20 11:00 94 H 97 06/16/20 10:55 100 H 98 06/16/20 10:50 94 H 97 06/16/20 10:49 91 H 132/67 06/16/20 10:45 98 H 97 06/16/20 10:40 97 H 98 06/16/20 10:35 95 H 98 06/16/20 10:34 90 130/66 06/16/20 10:30 94 H 98 06/16/20 10:25 92 H 99 06/16/20 10:20 95 H 99 06/16/20 10:19 94 H 131/67 06/16/20 10:15 93 H 100 06/16/20 10:10 93 H 100 06/16/20 10:09 107 H 92 06/16/20 10:05 103 H 98 06/16/20 10:04 96 H 126/63 06/16/20 10:00 95 H 98 06/16/20 09:55 99.1 F 91 H 18 97 06/16/20 09:50 100 H 98 06/16/20 09:49 100 H 131/64 06/16/20 09:45 100 H 98 06/16/20 09:40 99 H 96 06/16/20 09:35 92 H 130/64 97 06/16/20 09:30 94 H 97 06/16/20 09:25 94 H 96 06/16/20 09:20 95 H 96 06/16/20 09:19 92 H 120/59 L 09/03/20 09:15 90 96 06/16/20 09:10 91 H 97 06/16/20 09:05 93 H 121/57 L 97 06/16/20 09:00 91 H 96 06/16/20 08:55 90 97 06/16/20 08:50 93 H 97 06/16/20 08:49 96 H 123/64 06/16/20 08:45 93 H 97 06/16/20 08:40 98 H 99 06/16/20 08:35 87 127/68 100 06/16/20 08:30 90 99 06/16/20 08:25 93 H 97 06/16/20 08:21 96 H 132/68 06/16/20 08:20 96 H 99 06/16/20 08:15 93 H 98 06/16/20 08:10 93 H 97 06/16/20 08:06 90 133/63 06/16/20 08:05 91 H 100 06/16/20 08:00 90 99 06/16/20 07:55 86 98 06/16/20 07:50 98 H 116/67 98 06/16/20 07:45 92 H 96 06/16/20 07:43 94 H 92 06/16/20 07:40 100 H 96 06/16/20 07:35 98 H 136/76 98 06/16/20 07:30 93 H 98 06/16/20 07:25 96 H 98 06/16/20 07:21 90 125/58 L 06/16/20 07:20 92 H 97 06/16/20 07:15 90 98 06/16/20 07:10 92 H 98 06/16/20 07:06 99.1 F 91 H 18 152/73 H 06/16/20 07:05 94 H 97 06/16/20 07:04 90 173/91 H 06/16/20 07:00 93 H 18 98 06/16/20 06:55 91 H 96 06/16/20 06:50 90 160/89 H 98 06/16/20 06:45 87 98 06/16/20 06:43 97 H 90 06/16/20 06:40 90 97 06/16/20 06:36 100 H 140/85 06/16/20 06:35 96 H 99 06/16/20 06:30 90 18 99 09/03/20 06:25 81 97 06/16/20 06:20 92 H 96 06/16/20 06:19 89 103/56 L 06/16/20 06:15 92 H 96 06/16/20 06:10 89 96 06/16/20 06:05 93 H 98 06/16/20 06:04 88 109/56 L 06/16/20 06:00 94 H 18 97 06/16/20 05:55 92 H 97 06/16/20 05:54 94 H 94 06/16/20 05:50 91 H 108/57 L 95 06/16/20 05:45 86 96 06/16/20 05:40 89 97 06/16/20 05:35 90 96 06/16/20 05:34 86 107/59 L 06/16/20 05:30 95 H 18 97 06/16/20 05:28 99.0 F 06/16/20 05:25 92 H 97 06/16/20 05:24 90 109/56 L 06/16/20 05:20 91 H 98 06/16/20 05:19 83 90 06/16/20 05:15 86 96 06/16/20 05:10 85 97 06/16/20 05:05 85 97 06/16/20 05:04 83 104/57 L 06/16/20 05:00 91 H 18 99 06/16/20 04:55 87 98 06/16/20 04:50 86 107/56 L 98 06/16/20 04:49 87 90 06/16/20 04:45 90 96 06/16/20 04:40 92 H 97 06/16/20 04:35 82 110/64 97 06/16/20 04:30 81 98 06/16/20 04:25 85 97 06/16/20 04:21 85 132/92 06/16/20 04:20 93 H 99 06/16/20 04:15 94 H 98 06/16/20 04:10 87 97 06/16/20 04:06 86 131/83 06/16/20 04:05 97 H 98 06/16/20 04:00 91 H 18 98 06/16/20 03:58 91 H 117/71 06/16/20 03:55 89 98 06/16/20 03:50 90 98 06/16/20 03:45 95 H 98 06/16/20 03:40 88 97 06/16/20 03:35 99 H 98 06/16/20 03:34 79 96/55 L 06/16/20 03:30 81 18 97 06/16/20 03:25 82 97 06/16/20 03:22 99.0 F 06/16/20 03:20 85 99/58 L 98 06/16/20 03:15 91 H 97 06/16/20 03:10 80 98 06/16/20 03:05 86 100/55 L 99 06/16/20 03:00 82 18 98 06/16/20 02:55 88 99 06/16/20 02:50 76 98 06/16/20 02:49 78 106/58 L 06/16/20 02:45 78 98 06/16/20 02:40 89 97 06/16/20 02:35 83 99 06/16/20 02:34 75 110/60 06/16/20 02:30 85 18 98 06/16/20 02:25 86 97 06/16/20 02:20 88 100/60 99 06/16/20 02:15 79 97 06/16/20 02:10 88 97 06/16/20 02:05 88 96 06/16/20 02:04 80 102/56 L 06/16/20 02:00 80 18 97 06/16/20 01:55 87 97 06/16/20 01:50 84 98 06/16/20 01:48 89 100/61 06/16/20 01:45 86 98 06/16/20 01:40 82 97 06/16/20 01:35 81 99 06/16/20 01:34 98.8 F 81 97/56 L 06/16/20 01:30 81 18 97 06/16/20 01:25 89 98 06/16/20 01:20 87 98 06/16/20 01:19 90 98/56 L 06/16/20 01:15 92 H 97 06/16/20 01:10 90 98 06/16/20 01:05 90 97 06/16/20 01:03 82 101/55 L 06/16/20 01:00 94 H 18 97 06/16/20 00:55 83 97 06/16/20 00:50 81 97 06/16/20 00:49 77 98/55 L 06/16/20 00:45 86 98 06/16/20 00:40 89 97 06/16/20 00:35 86 97 06/16/20 00:34 84 105/59 L 06/16/20 00:30 86 18 97 06/16/20 00:25 84 97 06/16/20 00:20 84 97 06/16/20 00:19 78 99/58 L 06/16/20 00:15 88 98 06/16/20 00:10 91 H 98 06/16/20 00:05 86 110/61 06/16/20 00:04 91 H 98 06/16/20 00:00 18 06/15/20 23:59 98 H 99 06/15/20 23:54 97 H 99 06/15/20 23:49 91 H 116/61 98 06/15/20 23:44 92 H 98 06/15/20 23:39 108 H 98 06/15/20 23:35 18 06/15/20 23:34 104 H 99 06/15/20 23:33 96 H 130/60 06/15/20 23:32 97.9 F 06/15/20 23:30 18 06/15/20 23:29 104 H 98 PG Care Time/CCT Total # of Minutes Spent Total Time Spent with Patient: Total time spent is greater than 50% in coordination of care (as documented) at patient's floor/unit and/or counseling patient: Coding Level of Care Code None
[2020-06-16] MEDS ORDERED: CEFAZOLIN 3000MG 65 ML IV SCH (15:00)
[2020-06-16] MEDS ORDERED: CITRIC ACID/SODIUM CITRATE 15 ML UDC ONE (15:07)
[2020-06-16] MEDS ORDERED: MoRPHine SULFATE PF 1 MG/ML 10 ML AMP/VIAL ONE (15:08)
[2020-06-16] MEDS ORDERED: ONDANSETRON INJ 2 MG/ML 2 ML VIAL ONE (15:14)
[2020-06-16] MEDS ORDERED: LIDOCAINE/EPINEPHRINE 2% 1:200,000 20 ML SDV ONE (15:14)
[2020-06-16] MEDS ORDERED: METOCLOPRAMIDE HCL INJ 5 MG/ML 2 ML VIAL ONE (15:14)
[2020-06-16] MEDS ORDERED: LIDOCAINE 2% 20 MG/ML 5 ML SYR IV ONE (15:14)
[2020-06-16] MEDS ORDERED: PROPOFOL IV EMULSION 10 MG/ML 20 ML VIAL IV ONE (15:14)
[2020-06-16] MEDS ORDERED: OXYTOCIN 10 UNITS/ML VIAL ONE (15:14)
[2020-06-16 15:26] LABS: Eosinophils # (auto) 0.03 K/uL (0-0.5); Eosinophils % (auto) 0.2 %; Hematocrit (blood only) 36.9 % (37-47); Hemoglobin 12.4 g/dL (12.0-16.0); Immature Granulocytes # (auto) 0.06 K/uL (0.00-0.02); Immature Granulocytes % (auto) 0.4 %; Lymphocytes # (auto) 1.68 K/uL (1.2-3.4); Lymphocytes % (auto) 11.7 %; Mean Corpuscular Hemoglobin 28.9 pg (25-34); Mean Platelet Volume 12.2 fL (7.4-10.4); Monocytes # (auto) 0.94 K/uL (0.11-0.59); Monocytes % (auto) 6.5 %; Neutrophils # (auto) 11.68 K/uL (1.4-6.5); Neutrophils % (auto) 81.2 %; Platelet Count 163 K/uL (130-400); RDW Coefficient of Variation 15.1 % (11.5-14.5); Red Blood Count 4.29 M/uL (4.2-5.4); White Blood Count 14.39 K/uL (4.8-10.8)
[2020-06-16 15:34] LABS: Mean Corpuscular Hgb Conc 33.6 g/dL (32-36)
[2020-06-16] MEDS ORDERED: MIDAZOLAM HCL 1 MG/ML 2ML VIAL ONE (16:04)
--- NOTE | 2020-06-16 16:42 | Post Operative Brief Note ---
PG Immediate Post Op with CF Date of Surgery June 16, 2020 Pre & Post Diagnosis Operation Date: 06/15/20 11:30 Pre-Op Diagnosis: cervical cerclage Post-Op Diagnosis: removal of cervical cerclage Operation Date: 06/16/20 15:10 Pre-Op Diagnosis: PRIMARY SECTION FOR ARREST OF DILATION AT 38 WEEKS Post-Op Diagnosis: SAME PREOP I identified the patient and participated in the time-out.: Yes Procedure Operation Date: 06/15/20 11:30 Actual Procedures p Exam Under Anesthesia - Yamilet Munroe MD, FACOG Operation Date: 06/16/20 15:10 Actual Procedures p Section in LD; LIVE MALE INFANT AT 1559(Bilateral) - Luz Maria Mari MD, FACOG Surgeon Luz Maria Lopez MD, FACOG Manager Local none Estimated Blood Loss 600 Findings Consistent with Post-Op Diagnosis Specimens Specimen Description: PLACENTA (HOLD) CORD BLOOD Drains Berrios Catheter Anesthesia Type Spinal
[2020-06-16] MEDS ORDERED: ePHEDrine sulfate 50 MG/ML AMP ONE (16:43)
[2020-06-16] MEDS ORDERED: PHENYLEPHRINE 100MCG/ML 5ML SYR ONE (16:43)
[2020-06-16] MEDS ORDERED: NALOXONE HCL 0.08 MG in SYRINGE 1.8 ML IV PRN (16:49)
[2020-06-16] MEDS ORDERED: ONDANSETRON INJ 2 MG/ML 2 ML VIAL IV PRN ×2 (16:49→18:10)
[2020-06-16] MEDS ORDERED: LACTATED RINGER'S 500 ML IV PRN (16:49)
[2020-06-16] MEDS ORDERED: DiphenhydrAMINE HCL 50 MG/ML VIAL IV PRN (16:49)
[2020-06-16] MEDS ORDERED: MEPERIDINE HCL 25 MG/ML CARP/VIAL IV PRN (16:49)
[2020-06-16] MEDS ORDERED: NALOXONE HCL 1 MG in SODIUM CHLORIDE 0.9% 1000ML 1,000 ML IV PRN (16:49)
[2020-06-16] MEDS ORDERED: PROMETHAZINE HCL 12.5 MG in SODIUM CHLORIDE 0.9% 50 ML IV PRN (16:49)
[2020-06-16] MEDS ORDERED: ePHEDrine sulfate 50 MG/ML AMP IV PRN (16:49)
[2020-06-16] MEDS ORDERED: MoRPHine SULFATE PF 1 MG/ML 10 ML AMP/VIAL EPI ONE (16:49)
[2020-06-16] MEDS ORDERED: NALOXONE HCL 0.4 MG/1 ML VIAL/CARP IV PRN (16:49)
[2020-06-16] MEDS ORDERED: NO NARCOTICS OR SEDATIVES SCH (17:00)
[2020-06-16] MEDS ORDERED: DC INTRASPINAL MORPHINE SCH (17:00)
[2020-06-16] MEDS ORDERED: SODIUM CHLORIDE 0.9% 1000ML 1,000 ML IV SCH (17:00)
--- NOTE | 2020-06-16 17:19 | Anesthesia Procedure Note ---
Date of Service June 16, 2020 Anesthesia Post Epidural Note Vital Signs Vital Signs: Temp Pulse Resp BP Pulse Ox 37.3 C 111 H 18 108/53 L 98 06/16/20 14:19 06/16/20 17:15 06/16/20 14:19 06/16/20 17:10 06/16/20 17:15 Pain Intensity Bilateral Abdomen: Pain Intensity: 8 Notes Mental Status: alert / awake / arousable and participated in evaluation Nausea / Vomiting: adequately controlled Pain: adequately controlled Airway Patency, RR, SpO2: stable & adequate BP & HR: stable & adequate Hydration State: stable & adequate Neuraxial Anesthesia: was administered and sensory block is resolving Anesthetic Complications: no major complications apparent Epidural: Removed without complications and With tip intact
[2020-06-16] MEDS ORDERED: MAGNESIUM HYDROXIDE SUSP 30 ML UDC PO PRN (18:10)
[2020-06-16] MEDS ORDERED: BENZOCAINE 20% AER SPR 82.5 GM CAN EXT PRN (18:10)
[2020-06-16] MEDS ORDERED: HYDROCORTISONE ACETATE 25 MG SUPP PR PRN (18:10)
[2020-06-16] MEDS ORDERED: SUPERCREAM 0.870% 15 GM JAR EXT PRN (18:10)
[2020-06-16] MEDS ORDERED: PROMETHAZINE HCL 25 MG in SODIUM CHLORIDE 0.9% 50 ML IV PRN (18:10)
[2020-06-16] MEDS ORDERED: SENNA 8.6 MG TAB PO PRN (18:10)
[2020-06-16] MEDS ORDERED: DIPHTHERIA/TETANUS/PERTUSSIS 0.5 ML SYR/VIAL IM ONE (18:10)
--- NOTE | 2020-06-16 18:22 | Operative Report ---
PG Post Operative Report Pre & Post Diagnosis Operation Date: 06/15/20 11:30 Pre-Op Diagnosis: Cerclage in place Post-Op Diagnosis: removal of cerclage Operation Date: 06/16/20 15:10 Pre-Op Diagnosis: PRIMARY SECTION FOR ARREST OF DILATION AT 38 WEEKS Post-Op Diagnosis: SAME PREOP I identified the patient and participated in the time-out.: Yes Procedure Operation Date: 06/15/20 11:30 Actual Procedures p Exam Under Anesthesia - Yamilet Munroe MD, FACOG Operation Date: 06/16/20 15:10 Actual Procedures p Section in LD; LIVE MALE AT 1559(Bilateral) - Luz Maria Mari MD, FACOG Surgeon Luz Maria Lopez MD, FACOG Organizational Effectiveness Director none Estimated Blood Loss 600 Findings Consistent with Post-Op Diagnosis Specimens placenta Anesthesia Type Spinal Complications none Disposition Accompanied Patient To Recovery: Yes Disposition: L&D Description of Procedure primary low transverse section I attest to the content of the Intraoperative Record and any orders documented therein. Any exceptions are noted below.
--- NOTE | 2020-06-16 18:22 | Operative Report ---
PG Post Operative Report Pre & Post Diagnosis Operation Date: 06/15/20 11:30 Pre-Op Diagnosis: Cerclage in place Post-Op Diagnosis: removal of cerclage Operation Date: 06/16/20 15:10 Pre-Op Diagnosis: PRIMARY SECTION FOR ARREST OF DILATION AT 38 WEEKS Post-Op Diagnosis: SAME PREOP I identified the patient and participated in the time-out.: Yes Procedure Operation Date: 06/15/20 11:30 Actual Procedures p Exam Under Anesthesia - Yamilet Munroe MD, FACOG Operation Date: 06/16/20 15:10 Actual Procedures p Section in LD; LIVE MALE AT 1559(Bilateral) - Luz Maria Mari MD, FACOG Surgeon Luz Maria Lopez MD, FACOG Reimbursement Auditor Dr. Jeancarlos Rashid Estimated Blood Loss 600 Findings Consistent with Post-Op Diagnosis Specimens placenta Anesthesia Type Spinal Complications none Disposition Accompanied Patient To Recovery: Yes Disposition: L&D Description of Procedure primary low transverse section I attest to the content of the Intraoperative Record and any orders documented therein. Any exceptions are noted below.
[2020-06-16] MEDS: OXYTOCIN 20 UNITS in LACTATED RINGER'S 1,000 ML IV SCH (18:45)
--- NOTE | 2020-06-16 19:29 | Operative Report (OR) ---
DATE OF OPERATION: 06/16/2020 SURGEON: Dr. Luz Maria Mari. CRIMINAL DEFENSE LAWYER: Dr. Jeancarlos Rashid. PREOPERATIVE DIAGNOSES: Intrauterine at 38 weeks, failure to progress and arrest of dilation. POSTOPERATIVE DIAGNOSES: Intrauterine at 38 weeks, failure to progress and arrest of dilation, delivery of a viable male infant, 8 pounds 4 ounces, Apgars 9 and 9. PROCEDURE: Primary low transverse section. ANESTHESIA: Epidural. ESTIMATED BLOOD LOSS: 600 mL. HISTORY: The patient is a 35-year-old G1, P0 white female who had presented on 06/15/2020 for removal of cervical cerclage stitch. She had had one stitch removed a week before, but during her routine OB visit on 06/14, she was noted to have a second stitch present. She was brought to labor and delivery on 06/15 to have the second stitch removed. After the spinal was placed in preparation to removing the stitch, she was noted to have ruptured membranes of clear fluid. The remaining stitch was removed successfully at that time. After Six hours no regular contraction pattern had begun. Pitocin augmentation was initiated. An IUPC was placed after effective epidural analgesia. Despite adequate contractions, the cervix did not change past 5 cm dilated and -2 station for over 5 hours. Because of the lack of dilation and arrest of dilation, it was felt prudent to proceed with low transverse cervical section. The patient and her are agreeable to this plan of management. GROSS FINDINGS: Uterus is gravid and consistent with a term and size. Bilateral ovaries and fallopian tubes are grossly normal. DESCRIPTION OF PROCEDURE: After the patient received adequate epidural analgesia, she was prepped and draped in usual sterile fashion. A low transverse skin incision was made with the scalpel and carried to the fascia with the same scalpel. Bleeding in the adipose layer was secured with the Bovie. The fascia was then nicked and the incision was extended with George scissors. The edges were then grasped with Aron clamps and underlying rectus muscle was bluntly and sharply dissected off the overlying fascia. The rectus muscles were then bluntly divided along the midline and the underlying peritoneum elevated and entered sharply with the Metzenbaum scissors. The bladder was then taken down off the anterior surface of the uterus with Metzenbaum scissors and placed behind the bladder blade. The lower uterine segment was entered with the scalpel and extended transversely. Membranes were ruptured for clear fluid. The umbilical cord prolapsed through the uterine incision. After replacing this back into the uterine cavity, the vertex was delivered easily out of the pelvis into the uterine incision. Because of minimal relaxation in her pelvis, the vacuum was used to bring the vertex through the uterine incision. This was accomplished easily with moderate fundal pressure, the rest of the infant delivered and was spontaneously crying and moving all 4 limbs. The cord was clamped and cut and the infant was handed off to Dr. Rosario who was in attendance as block operator. The placenta was then manually removed and the uterus exteriorized and covered with a clean lap sponge. Uterine cavity was explored and some retained membranes were removed with a Nell clamp. After ensuring the uterine cavity was clear, the uterus was closed in 2 layers with a running locking imbricating fashion with 0 Monocryl suture. Hemostasis was noted to be excellent. Posterior cul-de-sac was irrigated with normal saline. The uterus was placed gently back into the abdominal cavity. The incision was examined once more and continued to have excellent hemostasis. Some bleeding along the bladder flap was controlled with the Bovie. The gutters were explored and found to be free of any fluid or clot. The rectus muscles were brought together in the midline with individual stitches of 0 Monocryl. The fascia was closed in a running fashion with 0 Vicryl. The adipose layer was then irrigated with normal saline. Bleeding in the corners of the incision were controlled with the Bovie. The skin was then closed in a running subcuticular stitch with 4-0 Vicryl. The patient tolerated the procedure well and was stable back in the labor room. I attest to the content of the Intraoperative Record and any orders documented therein. Any exceptions are noted below. MTDD
--- NOTE | 2020-06-16 19:47 | Anesthesiology Progress Note ---
Date of Service June 16, 2020 Anesthesia Post Procedure Vital Signs Vital Signs: Temp Pulse Resp BP Pulse Ox 06/16/20 19:15 120 H 112/56 L 96 06/16/20 19:10 119 H 121/59 L 97 06/16/20 19:05 117 H 97 06/16/20 19:00 117 H 120/60 95 06/16/20 18:57 115 H 94 06/16/20 18:55 115 H 95 06/16/20 18:50 118 H 121/64 96 06/16/20 18:45 119 H 20 95 06/16/20 18:40 118 H 122/66 95 06/16/20 18:35 116 H 96 06/16/20 18:32 119 H 94 06/16/20 18:30 114 H 120/70 95 06/16/20 18:25 117 H 95 06/16/20 18:20 117 H 130/68 95 06/16/20 18:15 38.8 C H 119 H 20 95 06/16/20 18:10 118 H 116/65 95 06/16/20 18:05 116 H 96 06/16/20 18:00 116 H 115/63 96 06/16/20 17:55 112 H 97 06/16/20 17:50 115 H 117/64 98 06/16/20 17:45 116 H 20 97 06/16/20 17:40 109 H 124/72 97 06/16/20 17:35 113 H 20 97 06/16/20 17:30 112 H 97 06/16/20 17:25 111 H 20 97 06/16/20 17:20 110 H 97 06/16/20 17:15 111 H 20 98 06/16/20 17:10 112 H 108/53 L 98 06/16/20 17:05 109 H 20 100 06/16/20 17:01 114 H 127/55 L 06/16/20 17:00 111 H 99 06/16/20 16:55 108 H 20 99 06/16/20 16:52 102 H 103/55 L 06/16/20 16:50 107 H 100 06/16/20 16:45 37.6 C H 20 06/16/20 15:20 114 H 100 06/16/20 15:15 110 H 100 06/16/20 15:13 110 H 90 06/16/20 15:10 113 H 100 06/16/20 15:05 117 H 99 06/16/20 15:04 109 H 145/88 H 06/16/20 15:00 107 H 100 06/16/20 14:55 105 H 99 06/16/20 14:50 102 H 100 06/16/20 14:49 100 H 141/83 H 06/16/20 14:45 104 H 99 06/16/20 14:40 106 H 99 06/16/20 14:35 100 H 99 06/16/20 14:34 100 H 137/80 06/16/20 14:30 104 H 100 06/16/20 14:25 103 H 99 06/16/20 14:20 103 H 99 06/16/20 14:19 37.3 C 94 H 18 133/75 06/16/20 14:15 99 H 99 06/16/20 14:10 100 H 100 06/16/20 14:05 103 H 139/79 100 06/16/20 14:00 101 H 100 06/16/20 13:55 98 H 100 06/16/20 13:50 102 H 100 06/16/20 13:49 105 H 136/73 06/16/20 13:45 101 H 98 06/16/20 13:40 99 H 99 06/16/20 13:35 103 H 99 06/16/20 13:34 98 H 134/71 06/16/20 13:30 99 H 97 06/16/20 13:25 100 H 97 06/16/20 13:20 96 H 97 06/16/20 13:19 102 H 132/72 06/16/20 13:15 98 H 97 06/16/20 13:10 96 H 98 06/16/20 13:05 96 H 98 06/16/20 13:04 94 H 130/72 06/16/20 13:00 99 H 99 06/16/20 12:55 103 H 99 06/16/20 12:50 101 H 136/79 100 06/16/20 12:45 105 H 97 06/16/20 12:40 104 H 98 06/16/20 12:35 111 H 133/70 99 06/16/20 12:34 100 H 137/73 06/16/20 12:30 99 H 98 06/16/20 12:25 102 H 98 09/03/20 12:20 96 H 97 06/16/20 12:19 93 H 139/78 06/16/20 12:15 96 H 98 06/16/20 12:10 94 H 97 06/16/20 12:05 96 H 98 06/16/20 12:04 95 H 127/78 06/16/20 12:00 98 H 98 06/16/20 11:55 94 H 98 06/16/20 11:50 95 H 135/75 99 06/16/20 11:45 96 H 98 06/16/20 11:40 96 H 96 06/16/20 11:35 95 H 98 06/16/20 11:34 93 H 139/78 06/16/20 11:30 93 H 98 06/16/20 11:25 99 H 99 06/16/20 11:20 97 H 98 06/16/20 11:19 37.1 C 96 H 20 134/75 06/16/20 11:15 93 H 98 06/16/20 11:10 98 H 98 06/16/20 11:05 95 H 96 06/16/20 11:04 93 H 131/71 06/16/20 11:00 94 H 97 06/16/20 10:55 100 H 98 06/16/20 10:50 94 H 97 06/16/20 10:49 91 H 132/67 06/16/20 10:45 98 H 97 06/16/20 10:40 97 H 98 06/16/20 10:35 95 H 98 06/16/20 10:34 90 130/66 06/16/20 10:30 94 H 98 06/16/20 10:25 92 H 99 06/16/20 10:20 95 H 99 06/16/20 10:19 94 H 131/67 06/16/20 10:15 93 H 100 06/16/20 10:10 93 H 100 06/16/20 10:09 107 H 92 06/16/20 10:05 103 H 98 06/16/20 10:04 96 H 126/63 06/16/20 10:00 95 H 98 06/16/20 09:55 37.3 C 91 H 18 97 06/16/20 09:50 100 H 98 06/16/20 09:49 100 H 131/64 06/16/20 09:45 100 H 98 06/16/20 09:40 99 H 96 06/16/20 09:35 92 H 130/64 97 06/16/20 09:30 94 H 97 06/16/20 09:25 94 H 96 06/16/20 09:20 95 H 96 06/16/20 09:19 92 H 120/59 L 06/16/20 09:15 90 96 06/16/20 09:10 91 H 97 06/16/20 09:05 93 H 121/57 L 97 06/16/20 09:00 91 H 96 06/16/20 08:55 90 97 06/16/20 08:50 93 H 97 06/16/20 08:49 96 H 123/64 06/16/20 08:45 93 H 97 06/16/20 08:40 98 H 99 06/16/20 08:35 87 127/68 100 06/16/20 08:30 90 99 06/16/20 08:25 93 H 97 06/16/20 08:21 96 H 132/68 06/16/20 08:20 96 H 99 06/16/20 08:15 93 H 98 06/16/20 08:10 93 H 97 06/16/20 08:06 90 133/63 06/16/20 08:05 91 H 100 06/16/20 08:00 90 99 06/16/20 07:55 86 98 06/16/20 07:50 98 H 116/67 98 06/16/20 07:45 92 H 96 06/16/20 07:43 94 H 92 06/16/20 07:40 100 H 96 06/16/20 07:35 98 H 136/76 98 06/16/20 07:30 93 H 98 06/16/20 07:25 96 H 98 06/16/20 07:21 90 125/58 L 06/16/20 07:20 92 H 97 06/16/20 07:15 90 98 06/16/20 07:10 92 H 98 06/16/20 07:06 37.3 C 91 H 18 152/73 H 06/16/20 07:05 94 H 97 06/16/20 07:04 90 173/91 H 06/16/20 07:00 93 H 18 98 06/16/20 06:55 91 H 96 06/16/20 06:50 90 160/89 H 98 06/16/20 06:45 87 98 06/16/20 06:43 97 H 90 06/16/20 06:40 90 97 06/16/20 06:36 100 H 140/85 06/16/20 06:35 96 H 99 06/16/20 06:30 90 18 99 06/16/20 06:25 81 97 06/16/20 06:20 92 H 96 06/16/20 06:19 89 103/56 L 06/16/20 06:15 92 H 96 06/16/20 06:10 89 96 06/16/20 06:05 93 H 98 06/16/20 06:04 88 109/56 L 06/16/20 06:00 94 H 18 97 06/16/20 05:55 92 H 97 06/16/20 05:54 94 H 94 06/16/20 05:50 91 H 108/57 L 95 06/16/20 05:45 86 96 06/16/20 05:40 89 97 06/16/20 05:35 90 96 06/16/20 05:34 86 107/59 L 06/16/20 05:30 95 H 18 97 06/16/20 05:28 37.2 C 06/16/20 05:25 92 H 97 06/16/20 05:24 90 109/56 L 06/16/20 05:20 91 H 98 06/16/20 05:19 83 90 06/16/20 05:15 86 96 06/16/20 05:10 85 97 06/16/20 05:05 85 97 06/16/20 05:04 83 104/57 L 06/16/20 05:00 91 H 18 99 06/16/20 04:55 87 98 06/16/20 04:50 86 107/56 L 98 06/16/20 04:49 87 90 06/16/20 04:45 90 96 06/16/20 04:40 92 H 97 06/16/20 04:35 82 110/64 97 06/16/20 04:30 81 98 06/16/20 04:25 85 97 06/16/20 04:21 85 132/92 06/16/20 04:20 93 H 99 06/16/20 04:15 94 H 98 06/16/20 04:10 87 97 06/16/20 04:06 86 131/83 06/16/20 04:05 97 H 98 06/16/20 04:00 91 H 18 98 06/16/20 03:58 91 H 117/71 06/16/20 03:55 89 98 06/16/20 03:50 90 98 06/16/20 03:45 95 H 98 06/16/20 03:40 88 97 06/16/20 03:35 99 H 98 06/16/20 03:34 79 96/55 L 06/16/20 03:30 81 18 97 06/16/20 03:25 82 97 06/16/20 03:22 37.2 C 06/16/20 03:20 85 99/58 L 98 06/16/20 03:15 91 H 97 06/16/20 03:10 80 98 06/16/20 03:05 86 100/55 L 99 06/16/20 03:00 82 18 98 06/16/20 02:55 88 99 06/16/20 02:50 76 98 06/16/20 02:49 78 106/58 L 06/16/20 02:45 78 98 06/16/20 02:40 89 97 06/16/20 02:35 83 99 06/16/20 02:34 75 110/60 06/16/20 02:30 85 18 98 06/16/20 02:25 86 97 06/16/20 02:20 88 100/60 99 06/16/20 02:15 79 97 06/16/20 02:10 88 97 06/16/20 02:05 88 96 06/16/20 02:04 80 102/56 L 06/16/20 02:00 80 18 97 06/16/20 01:55 87 97 06/16/20 01:50 84 98 06/16/20 01:48 89 100/61 06/16/20 01:45 86 98 06/16/20 01:40 82 97 06/16/20 01:35 81 99 06/16/20 01:34 37.1 C 81 97/56 L 06/16/20 01:30 81 18 97 06/16/20 01:25 89 98 06/16/20 01:20 87 98 06/16/20 01:19 90 98/56 L 06/16/20 01:15 92 H 97 06/16/20 01:10 90 98 06/16/20 01:05 90 97 06/16/20 01:03 82 101/55 L 06/16/20 01:00 94 H 18 97 06/16/20 00:55 83 97 06/16/20 00:50 81 97 06/16/20 00:49 77 98/55 L 06/16/20 00:45 86 98 06/16/20 00:40 89 97 06/16/20 00:35 86 97 06/16/20 00:34 84 105/59 L 06/16/20 00:30 86 18 97 06/16/20 00:25 84 97 06/16/20 00:20 84 97 06/16/20 00:19 78 99/58 L 06/16/20 00:15 88 98 06/16/20 00:10 91 H 98 06/16/20 00:05 86 110/61 06/16/20 00:04 91 H 98 06/16/20 00:00 18 06/15/20 23:59 98 H 99 06/15/20 23:54 97 H 99 06/15/20 23:49 91 H 116/61 98 06/15/20 23:44 92 H 98 06/15/20 23:39 108 H 98 06/15/20 23:35 18 06/15/20 23:34 104 H 99 06/15/20 23:33 96 H 130/60 06/15/20 23:32 36.6 C 06/15/20 23:30 18 06/15/20 23:29 104 H 98 06/15/20 23:27 100 H 127/59 L 06/15/20 23:25 98 H 18 119/63 06/15/20 23:24 97 H 98 06/15/20 23:23 100 H 123/60 06/15/20 23:21 106 H 119/57 L 06/15/20 23:20 18 06/15/20 23:19 99 H 121/62 99 06/15/20 23:17 96 H 123/68 06/15/20 23:15 101 H 18 136/66 06/15/20 23:14 96 H 99 06/15/20 23:13 90 132/61 06/15/20 23:11 89 141/73 H 09/02/20 23:09 99 H 127/81 100 06/15/20 23:07 96 H 142/85 H 06/15/20 23:04 100 H 100 06/15/20 23:01 93 H 135/78 06/15/20 23:00 18 06/15/20 22:59 90 159/96 H 06/15/20 22:30 18 06/15/20 22:00 18 06/15/20 21:32 36.8 C 86 134/81 06/15/20 21:30 18 06/15/20 21:00 18 06/15/20 20:32 90 131/63 06/15/20 20:30 18 Pain Intensity Bilateral Abdomen: Pain Intensity: 8 Transfer of Care Handoff Completed per policy Notes Mental Status: alert / awake / arousable Patient Amnestic to Procedure: Yes Nausea / Vomiting: adequately controlled Pain: adequately controlled Airway Patency, RR, SpO2: stable & adequate BP & HR: stable & adequate Hydration State: stable & adequate Anesthetic Complications: no major complications apparent
[2020-06-16] MEDS: KETOROLAC 30 MG/ML VIAL IV PRN (21:06)
[2020-06-17] MEDS: OXYTOCIN 20 UNITS in LACTATED RINGER'S 1,000 ML IV SCH (02:59)
[2020-06-17] MEDS: KETOROLAC 30 MG/ML VIAL IV PRN (05:30)
--- NOTE | 2020-06-17 06:35 | Obstetrical Progress Note ---
Date of Service <Jeancarlos Rashid MD - Last Filed: 06/17/20 08:34> June 17, 2020 Assessment & Plan <Jeancarlos Rashid MD - Last Filed: 06/17/20 08:34> (1) state: Jabier Mack is a 35 y/o F who is POD1 s/p pLTCS on 06/16/20. A+. Ab screen neg. Rubella immune. s/p C/S for arrest of dilation at 38 weeks - Hx short cervix. cerclage placed last week, removed 06/15/20, led to ROM. - Doing ok after C/S. . Requested another design center consultant. sanchez looks ok, appears mildly concentrated. - vitals reviewed. 109/67. 110 pulse. 18 rr. 37.2C. 95% O2 sat on RA. Tachycardic 110s overnight. - H/H 10.9/32.6%. Hb 12.4->10.9, appropriate after C/S. - I/O. 2.6 in 2.6 out (includes 700cc EBL, 375cc void) plan: routine care. continue pain control regimen. advance diet as tolerated. encourage ambulation. C/S bandage due to be removed later this afternoon. remove sanchez later today. Gestational DM -metformin during , no insulin during admission plan: no medications indicated s/p C/S +R Meenakshi sign - no sob - no calf tenderness and no unilateral findings. reassuring - on SCDs, may be causing discomfort from this plan: recheck on next exam Subjective <Jeancarlos Rashid MD - Last Filed: 06/17/20 08:34> Passing Gas:: Yes Lochia:: Small Feeding Type:: breast feeding Current Pain Level(1-10): 5 Meds are helping the pain, minimal after. Tolerating clear liquids. No out of bed. + flatus. Has sanchez. Mild dizziness/sweating/drowsy after pain meds. No calf pain. Review of Systems Denies fever Denies shortness of breath, chest pain, palpitations. Denies breast pain. Denies dysuria. Denies headache.. Denies nausea/vomiting. Denies numbness, tingling, weakness. Physical Exam <Jeancarlos Rashid MD - Last Filed: 06/17/20 08:34> General: Alert, oriented. No acute distress. Cardiac: Regular rate and rhythm, no murmurs/rubs/gallops. Respiratory: Clear to auscultation anterior and posteriorly, no wheezes/rales/rhonchi. No increased work of breathing. Symmetrical chest rise. No respiratory distress. Abdomen: see attending exam. Uterus: see attending exam. Lower Extremities: 2+ bilat LE edema. + Meenakshi sign on right, negative on left. Bilateral lower exteremity and calves look symmetrical in size and feel similar in temperature. Results & Data ([facility]) <Jeancarlos Rashid MD - Last Filed: 06/17/20 08:34> Vital Signs (Past 12 Hours) Vital Signs Temp Pulse Pulse Resp BP BP Pulse Ox 06/17/20 05:35 18 95 06/17/20 04:30 18 95 06/17/20 03:30 37.2 C 110 H 18 109/67 93 06/17/20 02:40 20 95 06/17/20 01:35 20 94 06/17/20 00:40 20 97 06/16/20 23:30 20 96 06/16/20 23:00 37.2 C 104 H 20 107/64 96 06/16/20 22:55 18 97 06/16/20 21:50 18 97 06/16/20 20:45 37.7 C H 126 H 18 131/74 96 06/16/20 19:15 38.2 C H 120 H 18 112/56 L 96 06/16/20 19:10 119 H 121/59 L 97 06/16/20 19:05 117 H 97 06/16/20 19:00 117 H 120/60 95 06/16/20 18:57 115 H 94 06/16/20 18:55 115 H 95 06/16/20 18:50 118 H 121/64 96 06/16/20 18:45 119 H 20 95 06/16/20 18:40 118 H 122/66 95 06/16/20 18:35 116 H 96 06/16/20 18:32 119 H 94 Medications Administered <Luz Maria Lopez MD, FACOG - Last Filed: 06/17/20 08:46> Co-Signing Physician Notes Resident Physician Supervision Note: I interviewed and examined the patient. Discussed with Dr. Rashid and agree with findings and plan as documented in the note. Any exceptions or clarifications are listed here: Correction from A&P: first cerclage stitch was removed 1 week ago. 2nd stitch removed on 06/15 with SPROM prior to removing the stitch. NO evidence of DVT on exam. Documented By: Luz Maria Lopez MD, FACOG
[2020-06-17 06:38] LABS: Hematocrit (blood only) 32.6 % (37-47); Hemoglobin 10.9 g/dL (12.0-16.0)
--- NOTE | 2020-06-17 08:55 | Medical Student Progress Note ---
Date of Service June 17, 2020 Assessment & Plan (1) state: Jabier is a 35 yo day 1 PP s/p c section due to arrest of dilation at 38 weeks after 26? hours of induction. complicated with Gestational DM, well control with insulin. A+ GBS - Rubella immune c section * vitals reviewed. BP 106/68, Pulse 98, Resp 18, Temp 37.3. within normal limits. continue routine care. * History of short cervix. Cerclage placed. stitches removed last week. One removed on 06/15. led to ROM * average blood loss. Hg 10.9 appropriate after c/s. Continue routine care. * Pain 5/10 at incision site. well managed with ibuprofen and oxycodone. Continue medicine until afternoon then switch to oral pain med. Continue routine care. * Incision site dry, no redness. Take dressing off later this afternoon. Continue care routine. Gestational DM * was on insulin during . no metformin or insulin upon admission or during delivery. stop medication. follow up with OB who will perform last glucose test. Admission and Anticipated Discharge Date Admission Date: June 15, 2020 Subjective Jabier is a 35 yo with gestational DM, PP day 1 s/p due to dilat ion progression arrest after 26? hours labor, induction with ptosin, inflation. She feels okay overall. Her pain was at 5/10 around the incision but is well managed with XXX. She has not eaten but has had water and OJ. She reports moderate bloody lochia. She has not had a bowel movement but has passed gas. She has a urine catheter in place, some concentrated urine. She denies breast tenderness and calf pain. She reports feeling "dizzy and sweaty". She plans on breast feeding her baby but has not had a successful attempt. Requested configuration management consultant. Review of Systems Respiratory: no dyspnea Cardiovascular: + edema; no chest pain and no calf pain Gastrointestinal: no nausea, no vomiting, no constipation and no diarrhea/loose stools Neurologic: no tingling, no numbness and no headache(s) Physical Exam Constitutional: WD/WN, vitals as above well developed Respiratory: normal respiratory effort Auscultation: lungs clear to auscultation bilaterally; no crackles, no rhonchi and no wheezes Cardiovascular: Rate/Rhythm: regular rhythm and + tachycardic bilateral pedal edema 2+ Gastrointestinal (Abdomen): did not perform. Checked incision site with attending, looked dry with no redness. Results & Data ([facility]) Vital Signs (Past 12 Hours) Vital Signs Temp Pulse Pulse Resp BP Pulse Ox 06/17/20 08:00 37.3 C 98 H 18 106/68 96 06/17/20 05:35 18 95 06/17/20 04:30 18 95 06/17/20 03:30 37.2 C 110 H 18 109/67 93 06/17/20 02:40 20 95 06/17/20 01:35 20 94 06/17/20 00:40 20 97 06/16/20 23:30 20 96 06/16/20 23:00 37.2 C 104 H 20 107/64 96 06/16/20 22:55 18 97 06/16/20 21:50 18 97
[2020-06-17] MEDS: DOCUSATE SODIUM 100 MG CAP PO SCH ×3 (09:06→20:08)
[2020-06-17] MEDS: SIMETHICONE 80 MG CHEW PO SCH ×4 (09:07→20:08)
[2020-06-17] MEDS: PRENATAL VITAMIN 1 TAB PO SCH ×2 (09:07→23:18)
[2020-06-17] MEDS ORDERED: DiphenhydrAMINE HCL 50 MG/ML VIAL IV PRN (10:50)
[2020-06-17] MEDS ORDERED: KETOROLAC 30 MG/ML VIAL IV PRN (10:50)
[2020-06-17] MEDS ORDERED: MEPERIDINE HCL 50 MG/ML CARP IV PRN (10:50)
[2020-06-17] MEDS: OXYCODONE/ACETAMINOPHEN 5mg/325mg TAB PO PRN ×3 (11:01→21:16)
[2020-06-17] MEDS: IBUPROFEN 600 MG TAB PO PRN ×3 (11:02→21:17)
[2020-06-17] MEDS ORDERED: bisacodyL 5 MG TABEC PO SCH (20:00)
[2020-06-18] MEDS: IBUPROFEN 600 MG TAB PO PRN ×3 (04:10→15:22)
[2020-06-18] MEDS: OXYCODONE/ACETAMINOPHEN 5mg/325mg TAB PO PRN ×3 (04:11→15:23)
[2020-06-18 06:32] LABS: Basophils # (auto) 0.02 K/uL (0-0.2); Basophils % (auto) 0.1 %; Eosinophils # (auto) 0.23 K/uL (0-0.5); Eosinophils % (auto) 1.5 %; Hematocrit (blood only) 30.6 % (37-47); Hemoglobin 9.9 g/dL (12.0-16.0); Immature Granulocytes # (auto) 0.08 K/uL (0.00-0.02); Immature Granulocytes % (auto) 0.5 %; Lymphocytes # (auto) 2.49 K/uL (1.2-3.4); Lymphocytes % (auto) 16.7 %; Mean Corpuscular Hemoglobin 28.4 pg (25-34); Mean Corpuscular Hgb Conc 32.4 g/dL (32-36); Mean Corpuscular Volume 87.7 fL (80-100); Mean Platelet Volume 11.2 fL (7.4-10.4); Monocytes # (auto) 0.96 K/uL (0.11-0.59); Monocytes % (auto) 6.4 %; Neutrophils # (auto) 11.12 K/uL (1.4-6.5); Neutrophils % (auto) 74.8 %; Platelet Count 150 K/uL (130-400); RDW Coefficient of Variation 15.3 % (11.5-14.5); RDW Standard Deviation 48.9 fL (36.4-46.3); Red Blood Count 3.49 M/uL (4.2-5.4)
[2020-06-18] MEDS: SIMETHICONE 80 MG CHEW PO SCH ×3 (08:15→17:31)
[2020-06-18] MEDS: DOCUSATE SODIUM 100 MG CAP PO SCH (08:15)
--- NOTE | 2020-06-18 08:16 | Obstetrical Progress Note ---
Date of Service June 18, 2020 Assessment & Plan (1) state: Doing well POD#2. Anticipate DC home tomorrow. Continue routine postop care, increase ambulation and PO fluids. Subjective Ambulation: ambulating normally Voiding: no voiding problems Diet Tolerance:: regular diet Lochia:: Moderate Feeding Type:: breast feeding POD#2 doing well. Review of Systems All systems reviewed & are unremarkable except as noted in HPI & below Physical Exam Incision CDI Constitutional WD/WN, vitals as above no acute distress Respiratory normal respiratory effort Cardiovascular Rate/Rhythm: regular rate and regular rhythm Gastrointestinal (Abdomen) Inspection/Auscultation: abdomen normal to inspection; abdomen not distended Percussion/Palpation: abdomen soft Genitourinary OB Exam Abdomen: + fundal height Fundus: + firm; not tender Results & Data ([facility]) Vital Signs (Past 12 Hours) Vital Signs Temp Pulse Resp BP 06/17/20 23:30 37 C 103 H 18 111/74
[2020-06-18] MEDS ORDERED: bisacodyL 10 MG SUPP PR PRN (17:14)
--- NOTE | 2020-06-23 01:10 | Discharge Summary (DS) ---
PRINCIPAL DIAGNOSES: Intrauterine at 38 and 4/7 weeks, failure to progress, primary section. PRINCIPAL PROCEDURE: Removal of cervical cerclage and primary section. HISTORY OF PRESENT ILLNESS: The patient is a 35-year-old 1, para 0 white female who presented on 06/15/2020 for removal of cervical cerclage stitch. She had it placed at 20 weeks because of a shortened cervix. Apparently, she had 2 stitches placed, one stitch was removed at 37 weeks, but on evaluation 1 week later on 06/14/2020 she was noted to have a stitch palpable crossing the cervical os. It was not able to be removed in the office and she was seen in labor and delivery on 06/15/2020 for removal of the stitch. After the spinal was placed to help facilitate removing the second stitch, membranes ruptured spontaneously for clear fluid and then the stitch was removed. She did not begin a normal labor pattern after 6 hours and Pitocin augmentation was begun. An IUPC was placed after getting effective epidural analgesia. Despite adequate contractions, cervix has not changed past 5 cm dilated, -2 station for over 5 hours. Because of the lack of further progress in labor, it was felt prudent to proceed with a low transverse cervical section. This was done without difficulty with delivery of a viable male infant, 8 pounds 4 ounces. She had an uncomplicated postop course. She was eating regular food on her 1st postop day. She was ambulating and voiding without difficulty as well on her 1st postop day. She was sent home in good condition with prescriptions for Percocet 1-2 tablets p.o. q. 4 hours p.r.n. pain and Motrin 600 mg every 6 hours p.r.n. pain. Labs on admission, hemoglobin 12.4, hematocrit of 36.9. First postop day, hemoglobin was 10.9, hematocrit of 32.6. Initial white count was 14,390. On her second postop day, white count was 14,900, hemoglobin was 9.9 and hematocrit 30.6. Third postop day, hemoglobin was 10.9 and 32.6. She remained afebrile throughout her hospital course. She was sent home with the prescriptions as noted above. She is to call for temperature of 101 degrees or higher, heavy vaginal bleeding, burning with urination, increased redness, drainage or pain in her incision, calf tenderness, fatigue, sore throat, shaking chills or any other concerns. She will be seen in the office in 6 weeks for followup appointment. TRACY
== END 2020-06-18 18:50 | disposition home or self-care (01) | DRG 786 ==
LOC: INTOOBSV 10:21 → 4S1 10:21 → 4S2 06-16 19:45